=== PATIENT | male | born 1960 | race Caucasian/White ===

== ENCOUNTER 2017-03-25 06:03 | Day surgery (SDC) | payer BC, OTHER ==
[2017-03-19 13:58] VITALS: BMI 22.3
[2017-03-25] MEDS ORDERED: PROPOFOL 20 ML ONE ×4 (07:13→09:10)
[2017-03-25] MEDS ORDERED: SUCCINYLCHOLINE CHLORIDE 200 MG/10 ML VIAL ONE (07:13)
[2017-03-25] MEDS ORDERED: MIDAZOLAM HCL 2 MG/2 ML SINGLE DOSE VIAL ONE (07:13)
[2017-03-25] MEDS ORDERED: TETRACAINE 0.5% OPHTH SOLN 2 ML BOTTLE ONE (07:17)
[2017-03-25] MEDS ORDERED: BACITRACIN 3.5 GM OPTHALMIC OINT TUBE ONE (07:17)
[2017-03-25] MEDS ORDERED: BUPIVACAINE HCL/PF 0.5% (5MG/ML) 10 ML VIAL ONE (07:18)
[2017-03-25] MEDS ORDERED: LIDOCAINE 1%/EPI 1:100000 (20 ML MULTI DOSE VIAL) ONE (07:18)
[2017-03-25] MEDS ORDERED: POVIDONE-IODINE 5% OPHTHALMIC PREP 30 ML SOLUTION ONE ×2 (07:18)
[2017-03-25] MEDS ORDERED: ceFAZolin SODIUM 1 GM VIAL ONE (07:47)
[2017-03-25] MEDS ORDERED: ONDANSETRON 4 MG/2 ML VIAL ONE (07:47)
[2017-03-25] MEDS ORDERED: GLYCOPYRROLATE 0.2 MG/1 ML VIAL ONE (07:47)
[2017-03-25] MEDS ORDERED: DEXAMETHASONE SOD PHOSPHATE 4 MG/1 ML VIAL ONE (07:47)
[2017-03-25] MEDS ORDERED: GUM MASTIC/STORAX/MSAL/ALCOHOL 1 DRP DROPSBTL MC ONE (08:52)
[2017-03-25] MEDS ORDERED: PROMETHAZINE HCL 25 MG/1 ML VIAL IVPB PRN (09:47)
[2017-03-25] MEDS ORDERED: oxyCODONE HCL 5 MG TABLET PO PRN ×2 (09:47)
[2017-03-25] MEDS ORDERED: ONDANSETRON 4 MG/2 ML VIAL IVPUSH PRN (09:47)
[2017-03-25] MEDS ORDERED: LACTATED RINGERS SOLUTION 1,000 ML IV SCH (10:00)
[2017-03-25 11:35] VITALS: BP 110/71; PULSE 52; TEMP 98
--- NOTE | 2017-03-27 09:56 | OP ---
DATE OF OPERATION: 03/25/2017 PREOPERATIVE DIAGNOSIS: Extensive defect involving 75% of the left lower lid status post excision of recurrent basal cell carcinoma. POSTOPERATIVE DIAGNOSIS: Extensive defect involving 75% of the left lower lid status post excision of recurrent basal cell carcinoma. PROCEDURES: 1. Lateral myocutaneous flap extensive from the left cheek to the left lower lid. 2. Tarsoconjunctival graft harvested from the lateral left upper lid to the nasal left lower lid. 3. Conjunctivoplasty left inferior fornix. 4. Full-thickness skin graft from the right postauricular region to the left lower lid. 5. Debridement defect left lower lid. SURGEON: Yuly Byrne MD ANESTHESIA: Local with sedation. COMPLICATIONS: None. ESTIMATED BLOOD LOSS: 10 mL. OPERATIVE REPORT: The patient was brought to the operating room and placed on the operating room table . Patches were removed. graft seemed to be about 75% of the eyelid. A time-out was performed. The patient was given intravenous sedation. Tetracaine was placed in the eyes, and a 50/50 mixture of 2% Xylocaine and 1:100,000 epinephrine was drawn up. High arch lateral myocutaneous flap was marked, and this was injected diffusely with anesthetic mixture as was the lower lid and the central portion of the upper lid. A 4-0 silk tracking suture was passed from the central margin of the upper lid after the patient was prepped and draped in the usual fashion exposing the right ear. The right ear was also injected along the helix and pretragal region. The lid was everted over a Desmarres retractor demonstrating where a small tarsal conjunctival graft could be harvested temporally, and this was marked out with a caliber leaving 4 mm of intact lid margin, and a subconjunctival injection of 2% lidocaine and 1:100,000 epinephrine was given in this area. The lateral myocutaneous flap was incised and below the muscle area was dissected off the underlying fascial tissues dissected off of the superior preeti and lateral canthal tendon with inferior lateral retractors down to the oval rim, and inferior preeti and lateral canthal tendon were released, and this allowed the lateral remnant of the eyelid to rotate nasally. The tarsoconjunctival graft was then harvested from the inside of the lateral upper lid by incising it with a No. 11 blade and then dissecting it off with the Kinjal scissors leaving it attached with the conjunctival pedicle. It was then rotated inferiorly, and with the conjunctival side posteriorly facing the globe, it was sutured into position to the nasal remnant of the eyelid and lateral remnant of the advanced lateral myocutaneous flap with interrupted 6-0 Vicryl sutures once a No. 11 blade was used to divide those remnants lateral and medial remnant into anterior and posterior lamella so the tarsal plate could be identified. Once the tarsoconjunctival graft in the upper lid was sutured into place, the inferior conjunctiva was released from retractors and was mobilized, and a conjunctivoplasty was sutured to the inferior edge of the tarsus from the upper lid completing the posterior lamellar anastomosis. The lateral canthal angle was now reformed with a 5-0 chromic at the lateral canthus 31-32 mm lateral to the medial canthus as measured on the contralateral side to be symmetric, and the lateral canthotomy was performed with 5-0 chromic. The lateral myocutaneous flap was supported to the deep fascial tissues with 5-0 Vicryl sutures. The lateral canthotomy was now reformed with interrupted 6-0 plain suture. The myocutaneous flap was closed with interrupted 5-0 chromic and with running 5-0 plain suture in plastic technique. A template was then placed over the posterior lamella, which had been newly reconstructed. This was then placed on the postauricular reflection, which was injected with 2% Xylocaine and 1:100,000 epinephrine for 3 mL. The graft with the smooth posterior auricular skin oriented toward the superior edge of the graft template was now harvested with a 15 blade and Kinjal scissors. Hemostasis was achieved with a Boone needle. Antibiotic irrigation was performed. The wound was closed with running 3-0 chromic sutures and reinforced with interrupted 3-0 chromic sutures closing the defect. The graft was subcutaneous tissue No. 11 blade and then sutured onto the posterior lamellar reconstruction with interrupted and running 6-0 plain suture in plastic technique, and it was sutured along the superior edge to the advanced tarsoconjunctival graft with a running 6-0 chromic suture. Attention was always paid to make sure that all of these sutures incorporated just the skin graft and the tarsoconjunctival graft advancement and no bulbar conjunctivae was included. This completed the reconstruction of the anterior lamella, which was done meticulously. Telfa was placed over the skin graft along with bacitracin ointment and then track sutures removed and a roll was tied over the skin graft with 4-0 silk sutures to the upper lid laterally and to the skin below the skin graft in the lower lid. eye patch and general fluff were then taped over the closed eye with Mastisol and paper tape. Xeroform and gauze were placed behind the right ear after the ear-retaining sutures had been removed, and the patient was taken up to the recovery area in stable condition. YULY BYRNE M.D. [id number]
== END 2017-03-25 11:40 | disposition home or self-care (01) ==
LOC: FASU 06:03
PROVIDERS: ATTEND Ophthalmology
PROC: 08URX7Z Supplement Left Lower Eyelid with Autologous Tissue Substitute, External Approach (ICD-10-PCS; 2017-03-25)
PROC: 0KX00ZZ Transfer Head Muscle, Open Approach (ICD-10-PCS; 2017-03-25)
PROC: 0HR1X73 Replacement of Face Skin with Autologous Tissue Substitute, Full Thickness, External Approach (ICD-10-PCS; 2017-03-25)
PROC: 0JB10ZZ Excision of Face Subcutaneous Tissue and Fascia, Open Approach (ICD-10-PCS; 2017-03-25)
PROC: 08BR0ZZ Excision of Left Lower Eyelid, Open Approach (ICD-10-PCS; principal; 2017-03-25 08:01)
DX: H02.89 Other specified disorders of eyelid (principal); Z85.828 Personal history of other malignant neoplasm of skin

== ENCOUNTER 2017-04-29 08:48 | Day surgery (SDC) | payer BC, OTHER ==
[2017-04-25 09:47] VITALS: BMI 23.0
[2017-04-29] MEDS ORDERED: BACITRACIN 3.5 GM OPTHALMIC OINT TUBE ONE (10:20)
[2017-04-29] MEDS ORDERED: POVIDONE-IODINE 5% OPHTHALMIC PREP 30 ML SOLUTION ONE (10:20)
[2017-04-29] MEDS ORDERED: LIDOCAINE 1%/EPI 1:100000 (20 ML MULTI DOSE VIAL) ONE (10:20)
[2017-04-29] MEDS ORDERED: TETRACAINE 0.5% OPHTH SOLN 2 ML BOTTLE ONE (10:20)
[2017-04-29] MEDS ORDERED: BUPIVACAINE HCL/PF 0.5% (5MG/ML) 10 ML VIAL ONE (10:20)
[2017-04-29] MEDS ORDERED: PROPOFOL 20 ML ONE ×3 (10:29)
[2017-04-29] MEDS ORDERED: MIDAZOLAM HCL 2 MG/2 ML SINGLE DOSE VIAL ONE ×2 (10:29)
[2017-04-29] MEDS ORDERED: ceFAZolin SODIUM 1 GM VIAL ONE (10:31)
[2017-04-29] MEDS ORDERED: GLYCOPYRROLATE 0.2 MG/1 ML VIAL ONE (10:48)
[2017-04-29] MEDS ORDERED: ONDANSETRON 4 MG/2 ML VIAL ONE (10:48)
[2017-04-29] MEDS ORDERED: DEXAMETHASONE SOD PHOSPHATE 4 MG/1 ML VIAL ONE (10:48)
[2017-04-29] MEDS ORDERED: TETRACAINE 0.5% OPHTH SOLN 2 ML BOTTLE OS ONE ×2 (11:01→11:10)
[2017-04-29] MEDS ORDERED: BACITRACIN 3.5 GM OPTHALMIC OINT TUBE OS ONE ×2 (11:10→11:17)
[2017-04-29] MEDS ORDERED: ONDANSETRON 4 MG/2 ML VIAL IVPUSH PRN (11:32)
[2017-04-29] MEDS ORDERED: LACTATED RINGERS SOLUTION 1,000 ML IV SCH (11:45)
[2017-04-29] MEDS ORDERED: oxyCODONE HCL 5 MG TABLET PO ONE (12:45)
[2017-04-29] MEDS ORDERED: oxyCODONE HCL 5 MG TABLET ONE (12:52)
[2017-04-29 13:15] VITALS: BP 95/60; PULSE 54; TEMP 97.8
--- NOTE | 2017-04-29 15:49 | OP ---
DATE OF OPERATION: 04/29/2017 PREOPERATIVE DIAGNOSIS: Ankyloblepharon, left eyelids. POSTOPERATIVE DIAGNOSIS: Ankyloblepharon, left eyelids. PROCEDURE: 1. Excision of ankyloblepharon, left. 2. Reconstruction of left lower eyelid margin. SURGEON: Yuly Byrne MD EDGING CATCHER: None. ANESTHESIA: Local with sedation. COMPLICATIONS: None. ESTIMATED BLOOD LOSS: 2-3 mL DESCRIPTION OF OPERATIVE PROCEDURE: Patient brought to the operating room, placed on the operating room table. Vital signs monitored by Anesthesia. Timeout was performed. Tetracaine was placed in both eyes, and after intravenous sedation, a 50/50 mixture of 2% Xylocaine with 1:100,000 epinephrine and 0.5% Marcaine was injected into the body of the ankyloblepharon, the lower eyelid margin, and subconjunctivally in the left upper lid, and essentially in the skin of the left upper lid. The patient was prepped and draped in usual sterile fashion, exposing both eyes. A 4-0 silk traction suture was passed through the central lid margin, clamped in hemostat superiorly, and prior to injection, the proposed new margin of the eyelid contour was marked. The ankyloblepharon was now incised with an 11 blade and Kinjal scissors, beveling it so that there would be excess conjunctiva compared to the skin. The skin was trimmed as necessary to have the similar contour to the existing eyelid. All deep subcutaneous tissue within the bulk of the eyelid was thinned and trimmed, and the conjunctiva was thinned of all subconjunctival scar tissue. At this point, the conjunctival flap which had been created was rotated over the margin and was sutured with a running 6-0 plain suture. The suture was secured to the skin of the newly constructed lower eyelid and run in a continuous fashion between the conjunctiva and the anterior lamella and then sutured to the skin at the other end and recreating the eyelid margin in this fashion. Bacitracin ointment was placed in the eye, and the ankyloblepharon was now approached from the upper lid. Lid was everted over a Desmarres retractor using the traction suture and the ankyloblepharon was excised from the conjunctival surface of the upper lid laterally and submitted for pathologic study. Small amount of cautery was used for hemostasis at the base. Bacitracin ointment was placed in the eye and on sutures, traction sutures removed, and the patient was taken to the recovery room in stable condition. YULY BYRNE M.D. [id number]
--- NOTE | 2017-04-30 12:05 | PATH ---
Surgical Pathology Report Patient Name: SKIP MCCRARY [facility]. Rec. #: [id number] /Age/Gender: 1960 (Age: 56) / M Account: [id number] Location: [facility] AMBULATORY Taken: 04/29/2017 Received: 04/29/2017 Reported: 04/30/2017 Physicians: Ronnie Monroe Specimen(s) Received ANKYLOBLEPHARON Clinical History Ankyloblepharon Final Diagnosis ANKYLOBLEPHARON, LEFT, EXCISION: EYELID TISSUE/CONJUNCTIVA SHOWING VASCULAR CONGESTION, EDEMA AND FIBROSIS. Electronically Signed Ayesha Singletary M.D. Gross Description Received in formalin labeled "left ankyloblepharon," is a 0.7 x 0.4 x 0.1 cm portion of berry tissue. The base is inked green and the specimen is trisected. The specimen is entirely submitted in one cassette. /04/29/2017 saudi/04/29/2017
== END 2017-04-29 13:15 | disposition home or self-care (01) ==
LOC: FASU 08:48
PROVIDERS: ATTEND Ophthalmology
PROC: 08BR0ZZ Excision of Left Lower Eyelid, Open Approach (ICD-10-PCS; principal; 2017-04-29 10:30)
DX: H02.525 Blepharophimosis left lower eyelid (principal)
CPT/HCPCS: 88304-TC; 94760